=== PATIENT | female | born 1975 | race African-American/Black ===

== ENCOUNTER 2021-08-15 08:09 | Emergency (ER) | payer OTHER ==
[~2021-08-15] VITALS: Ht 162.6 cm; Wt 74.4 kg
--- NOTE | 2021-08-15 08:28 | NUR ---
PATIENT AMBULATED TO BED 4.
[2021-08-15 08:34] VITALS: BP 145/73
--- NOTE | 2021-08-15 08:37 | NUR ---
PT CURRENTLY RINSING R EYE IN SINK
[2021-08-15] MEDS ORDERED: TETRACAINE HCL/PF 0.5% OPTH 4 ML BTL ONE ×2 (08:53)
[2021-08-15] MEDS ORDERED: FLUORESCEIN OPTH STRIP 1 MG ONE (08:53)
--- NOTE | 2021-08-15 09:03 | NUR ---
45 Y/O F BIB SELF WITH SON AT BEDSIDE, PATIENT PRESENTS TO ED WITH R EYE PAIN, SHARP PAIN AFTER CHANGING A LIGHTBULB THIS MORNING. PT STATES SHE MAY HAVE HAD SOMETHING FALL INTO HER EYE AND STARTED HAVING INCREASED PAIN. PERRLA, EYE IS RED/NO DRAINAGE OR BLOOD. PT DOES NOT REPORT WEARING CORRECTIVE LENSES FOR VISION, BURRY VISION IN R EYE. DENIES N/V/D; SKIN IS PINK/WARM/DRY; AAOX4 WITH EVEN AND STEADY GAIT; LUNGS CLEAR BL; HR EVEN AND REGULAR; PT DENIES ANY FEVER, CP, SOB, OR COUGH AT THIS TIME; PATIENT STATES PAIN OF 10/10 AT THIS TIME; VSS; PATIENT POSITIONED FOR COMFORT; HOB ELEVATED; BEDRAILS UP X2; BED DOWN. ER MD MADE AWARE OF PT STATUS. PMH: DENIES NK[facility] MED: DENIES
[2021-08-15] MEDS ORDERED: SULOS OP (09:26)
[2021-08-15] MEDS ORDERED: KETO5SOL OP (09:26)
[2021-08-15 09:36] VITALS: BP 145/73
--- NOTE | 2021-08-15 09:37 | NUR ---
Patient discharged with v/s stable. Written and verbal after care instructions given and explained. Patient alert, oriented and verbalized understanding of instructions. Ambulatory with steady gait. All questions addressed prior to discharge. ID band removed. Patient advised to follow up with PMD. Rx of KETOROLAC TROMETHAMINE, SULFACETAMIDE SODIUM given. Patient educated on indication of medication including possible reaction and side effects. Opportunity to ask questions provided and answered.
== END 2021-08-15 09:37 | disposition home or self-care (01) ==
LOC: MED 08:09
DX: H17.9 Unspecified corneal scar and opacity (principal)
CPT/HCPCS: 99283